=== PATIENT | male | born 1985 | race Caucasian/White ===

== ENCOUNTER 2017-05-05 07:32 | Emergency (ER) | payer OTHER ==
[~2017-05-05] VITALS: Ht 185.4 cm; Wt 95.3 kg
[2017-05-05] MEDS ORDERED: ERYTHROMYCIN 0.5% OPHTH OINTMENT 1GM TUBE. OU STA (07:56)
[2017-05-05 08:00] VITALS: BP 128/80
[2017-05-05] MEDS ORDERED: ERYT1OIN6 EACHEYE (08:01)
--- NOTE | 2017-05-05 08:02 | PHYS DOC ---
Adult General Chief Complaint Chief Complaint: EYE PROBLEMS HPI HPI Patient is a 31 year old male who presents with complaint of redness and drainage from the left eye. Patient states that his symptoms started 2 days ago and have progressively worsened. Patient states that he stated in a hotel room in [place] prior to onset of symptoms. Patient states that he has had mild swelling and irritation to the eye. Patient states that his eye was "glued shut " this morning and he had to pry his eyelids apart. Patient rates pain in the affected eye is a 1. Patient has noted redness but denies drainage or itching to his right eye. Patient denies any significant past medical history. Patient has not taken any medications for symptoms. Review of Systems Review of Systems Constitutional: Denies fever or chills [] Eyes: Left eye redness, itching, drainage [] HENT: Denies nasal congestion or sore throat [] Respiratory: Denies cough or shortness of breath [] Musculoskeletal: Denies back pain or joint pain [] Integument: Denies rash or skin lesions [] Neurologic: Denies headache, focal weakness or sensory changes [] Current Medications Current Medications Current Medications Medications (Trade) Dose Ordered Sig/Nathaly Start Time Stop Time Status Last Admin Dose Admin Erythromycin (Romycin) 0.5 inch 1X STAT 05/05/17 07:56 05/05/17 07:57 UNV Allergies Allergies No known drug allergies Physical Exam Physical Exam Constitutional: Well developed, well nourished, no acute distress, non-toxic appearance. [] HENT: Normocephalic, atraumatic, bilateral external ears normal, oropharynx moist, no oral exudates, nose normal. [] Eyes: PERRLA, EOMI, left conjunctiva mildly moderately swollen and inflamed, thick yellow exudates from left eye, scleral injection prominent in left eye, small localized medial scleral injection in the right eye. [] Neck: Normal range of motion, no tenderness, supple, no stridor. [] Lungs & Thorax: Bilateral breath sounds clear to auscultation [] Skin: Warm, dry, no erythema, no rash. [] Extremities: No tenderness, no cyanosis, no clubbing, ROM intact, no edema. [] Neurologic: Alert and oriented X 3, normal motor function, normal sensory function, no focal deficits noted. [] Current Patient Data Vital Signs Vital Signs Date Time Temp Pulse Resp B/P (MAP) Pulse Ox O2 Delivery O2 Flow Rate FiO2 05/05/17 08:00 98.1 73 18 97 Room Air Lab Results None performed EKG EKG Not performed [] Radiology/Procedures Radiology/Procedures Not performed [] Course & Med Decision Making Course & Med Decision Making Pertinent Labs and Imaging studies reviewed. (See chart for details) Patient's symptoms appear consistent with bacterial conjunctivitis. There appears to be early symptoms in the right eye. The patient was treated with erythromycin ointment to both eyes in the emergency department. Advised to continue on erythromycin ointment for the next 7 days for treatment in both eyes. Recommended follow-up with primary doctor in 5 days if symptoms are not improving. Advised return emergency department for any worsening symptoms. Patient voiced understanding and in agreement with treatment plan. Dragon Disclaimer Dragon Disclaimer This chart was dictated in whole or in part using Voice Recognition software in a busy, high-work load, and often noisy Emergency Department environment. It may contain unintended and wholly unrecognized errors or omissions. Departure Departure: Impression: Primary Impression: Bacterial conjunctivitis of both eyes Disposition: 01 HOME, SELF-CARE Condition: IMPROVED Referrals: NON,STAFF (PCP) Patient Instructions: Bacterial Conjunctivitis Additional Instructions: Follow-up with your primary doctor in the next 5 days if symptoms are not improving. Return to emergency department for any worsening symptoms. Scripts Erythromycin Base (Erythromycin) 1 Gm Oint...g. 0.5 INCH EACHEYE QID for 7 Days, [facility] [place] Prov: DONALDO VANEGAS MD 05/05/17 DONALDO VANEGAS MD May 05, 2017 08:01
== END 2017-05-05 08:13 | disposition home or self-care (01) ==
LOC: ER 07:32
DX: H10.89 Other conjunctivitis (principal)
CPT/HCPCS: 99283